=== PATIENT | female | born 1985 | race Caucasian/White ===

== ENCOUNTER 2018-05-02 11:50 | Observation (INO) | payer OTHER ==
[~2018-05-02] VITALS: Ht 164 cm; Wt 74.4 kg
[2018-05-02] MEDS ORDERED: PREN-154 PO (13:08)
[2018-05-02] MEDS ORDERED: IRON-24 PO (13:08)
[2018-05-02] MEDS ORDERED: FOLI1 PO (13:08)
[2018-05-02 13:16] VITALS: BP 122/63
== END 2018-05-02 14:25 | disposition home or self-care (01) ==
LOC: 4S 11:50
PROVIDERS: ADMIT Specialist; ATTEND Specialist
DX: O62.9 Abnormality of forces of labor, unspecified (principal); Z3A.37 37 weeks gestation of pregnancy
CPT/HCPCS: 59025; 76805; G0378

== ENCOUNTER 2018-05-03 14:50 | Inpatient (IN) | payer OTHER ==
[~2018-05-03] VITALS: Ht 165 cm; Wt 76.0 kg
[~2018-05-03 14:50] MED LIST: FOLI1 PO; IRON-24 PO; PREN-154 PO
[2018-05-03 15:15] VITALS: BP 118/65
[2018-05-03] MEDS ORDERED: FentaNYL CITRATE-PF 100 MCG/2 ML VIAL IVP PRN (16:00)
[2018-05-03] MEDS ORDERED: METOCLOPRAMIDE HCL 5 MG/ML 2 ML VIAL IVP PRN (16:00)
[2018-05-03] MEDS ORDERED: METHYLERGONOVINE MALEATE 0.2 MG/ML VIAL IM PRN (16:00)
[2018-05-03] MEDS ORDERED: LIDOCAINE HCL/PF 1% 30 ML VIAL INJ PRN (16:00)
[2018-05-03] MEDS ORDERED: CITRIC ACID/SODIUM CITRATE 30 ML SOLUTION UDCUP PO PRN (16:00)
[2018-05-03] MEDS ORDERED: RINGERS SOLUTION,LACTATED 1,000 ML IV SCH (16:00)
[2018-05-03] MEDS ORDERED: RINGERS SOLUTION,LACTATED 1,000 ML IV PRN (16:00)
[2018-05-03 16:43] LABS: BASOPHILS % (AUTO) 0.7 % (0.0-2.0); EOSINOPHILS % (AUTO) 0.4 % (1.0-6.0); HEMATOCRIT 37.8 % (36-46); LYMPHOCYTES % (AUTO) 12.4 % (22.0-44.0); MEAN CORPUSCULAR HEMOGLOBIN 29.5 pg (26.0-34.0); MEAN CORPUSCULAR HGB CONC 34.4 G/dL (31.0-37.0); MEAN CORPUSCULAR VOLUME 86 fL (80-100); MONOCYTES # (AUTO) 1.6 K/uL (0.1-1.0); MONOCYTES % (AUTO) 9.7 % (2.0-9.0); NEUTROPHILS # (AUTO) 12.7 K/uL (1.8-7.7); NEUTROPHILS % (AUTO) 76.8 % (40.0-70.0); PLATELET COUNT (AUTO)-OB 289 K/uL (150-450); RED CELL DISTRIBUTION WIDTH 14.3 % (11.5-14.5)
[2018-05-03] MEDS ORDERED: ROPIVACAINE HCL/PF 0.2% 100 ML ED ONE (18:01)
[2018-05-03] MEDS ORDERED: LIDOCAINE HCL/PF 2% 5 ML VIAL ONE (18:01)
[2018-05-03] MEDS ORDERED: ROPIVACAINE HCL/PF 0.2% 100 ML ED PRN (18:27)
[2018-05-03] MEDS ORDERED: ONDANSETRON HCL 4 MG/2 ML VIAL IVP PRN (18:30)
[2018-05-03] MEDS ORDERED: DiphenhydrAMINE HCL 50 MG/ML VIAL IVP PRN (18:30)
[2018-05-03] MEDS ORDERED: NALBUPHINE HCL 10 MG/ML VIAL IVP PRN (18:30)
[2018-05-03] MEDS ORDERED: OXYTOCIN 30 UNITS/LACT RINGERS 500 ML IV PRN (18:39)
[2018-05-03] MEDS ORDERED: OXYGEN THERAPY IH SCH (20:00)
[2018-05-03] MEDS ORDERED: SIMETHICONE 80 MG CHEWABLE TABLET CHEW SCH (21:00)
[2018-05-03] MEDS ORDERED: ACETAMINOPHEN 1000 MG/ISO-OSM 100 ML IV ONE (23:45)
[2018-05-03] MEDS: AMPICILLIN SODIUM 2 GM/NS 100 ML IV SCH (23:51)
[2018-05-04] MEDS ORDERED: MAGNESIUM HYDROXIDE SUSPENSION 30 ML UDCUP PO PRN
[2018-05-04] MEDS ORDERED: BENZOCAINE 20%/MENTHOL 56 GM SPRAY CANISTER TP PRN
[2018-05-04] MEDS ORDERED: METHYLERGONOVINE MALEATE 0.2 MG TABLET PO PRN
[2018-05-04] MEDS ORDERED: IBUPROFEN 800 MG TABLET PO PRN
[2018-05-04] MEDS ORDERED: GLYCERIN/WITCH HAZEL LEAF 40 PADS JAR TP PRN
[2018-05-04] MEDS ORDERED: OxyCODONE HCL/ACETAMINOPHEN 5-325 MG TABLET PO PRN ×2
[2018-05-04] MEDS ORDERED: LANOLIN 7 GM OINTMENT TP PRN
[2018-05-04] MEDS ORDERED: SENNA/DOCUSATE SODIUM 187-50 MG TABLET PO PRN
[2018-05-04] MEDS ORDERED: RINGERS SOLUTION,LACTATED 1,000 ML IV ONE (01:04)
[2018-05-04] MEDS: AMPICILLIN SODIUM 2 GM/NS 100 ML IV SCH ×4 (06:15→23:35)
[2018-05-04 06:27] LABS: BASOPHILS % (AUTO) 0.2 % (0.0-2.0); EOSINOPHILS % (AUTO) 0 % (1.0-6.0); HEMOGLOBIN 11.3 g/dL (12.0-16.0); LYMPHOCYTES # (AUTO) 2.1 K/uL (1.0-4.8); LYMPHOCYTES % (AUTO) 8.4 % (22.0-44.0); MEAN CORPUSCULAR HEMOGLOBIN 28.6 pg (26.0-34.0); MEAN CORPUSCULAR HGB CONC 33.2 G/dL (31.0-37.0); MEAN CORPUSCULAR VOLUME 86 fL (80-100); NEUTROPHILS # (AUTO) 20.9 K/uL (1.8-7.7); NEUTROPHILS % (AUTO) 83.4 % (40.0-70.0); PLATELET COUNT (AUTO)-OB 250 K/uL (150-450); RED BLOOD CELL COUNT(AUTO) 3.96 MIL/uL (4.00-5.20); RED CELL DISTRIBUTION WIDTH 13.8 % (11.5-14.5)
[2018-05-05] MEDS: AMPICILLIN SODIUM 2 GM/NS 100 ML IV SCH ×2 (05:37→12:06)
[2018-05-05 09:02] LABS: BASOPHILS % (AUTO) 0.5 % (0.0-2.0); EOSINOPHILS % (AUTO) 1.5 % (1.0-6.0); HEMATOCRIT 35.4 % (36-46); HEMOGLOBIN 11.8 g/dL (12.0-16.0); LYMPHOCYTES # (AUTO) 2.1 K/uL (1.0-4.8); LYMPHOCYTES % (AUTO) 15.4 % (22.0-44.0); MEAN CORPUSCULAR HEMOGLOBIN 28.7 pg (26.0-34.0); MEAN CORPUSCULAR HGB CONC 33.3 G/dL (31.0-37.0); MEAN CORPUSCULAR VOLUME 86 fL (80-100); MONOCYTES # (AUTO) 0.8 K/uL (0.1-1.0); MONOCYTES % (AUTO) 6.1 % (2.0-9.0); NEUTROPHILS # (AUTO) 10.4 K/uL (1.8-7.7); NEUTROPHILS % (AUTO) 76.5 % (40.0-70.0); PLATELET COUNT (AUTO)-OB 278 K/uL (150-450); RED BLOOD CELL COUNT(AUTO) 4.11 MIL/uL (4.00-5.20); RED CELL DISTRIBUTION WIDTH 14.4 % (11.5-14.5)
[2018-05-05] MEDS ORDERED: AMPI500C68 PO (13:59)
[2018-05-05] MEDS ORDERED: IBUP-2071 PO (14:04)
== END 2018-05-05 15:15 | disposition home or self-care (01) | DRG 775 ==
LOC: 4S 14:50 → OBSVTOIN 15:58
PROVIDERS: ADMIT Specialist; ATTEND Specialist
PROC: 10E0XZZ Delivery of Products of Conception, External Approach (ICD-10-PCS; principal; 2018-05-03)
PROC: 0HQ9XZZ Repair Perineum Skin, External Approach (ICD-10-PCS; 2018-05-03)
PROC: 3E0S3BZ Introduction of Anesthetic Agent into Epidural Space, Percutaneous Approach (ICD-10-PCS; 2018-05-03)
PROC: 00HU33Z Insertion of Infusion Device into Spinal Canal, Percutaneous Approach (ICD-10-PCS; 2018-05-03)
DX: O70.0 First degree perineal laceration during delivery (principal); Z3A.37 37 weeks gestation of pregnancy; Z37.0 Single live birth
CPT/HCPCS: 86850; 86900; 86901; 87070; 87205; 89060; J0131; J0290; J2590; J2795; J3010; J3490; J7120